=== PATIENT | female | born 1975 | race Caucasian/White ===

== ENCOUNTER 2023-07-11 12:24 | Day surgery (SDC) | payer MEDICARE, MEDICAID ==
[2023-07-05 15:19] LABS: BASOPHILS # (AUTO) 0.1 X10'3 (0-0.2); BASOPHILS % (AUTO) 1.1 % (0-1); BILIRUBIN,URINE NEGATIVE (Neg); CLARITY,URINE CLEAR (Clear); COLOR,URINE YELLOW (Yellow); EOSINOPHILS # (AUTO) 0.2 X10'3 (0-0.9); EOSINOPHILS % (AUTO) 2.7 % (0-6); GLUCOSE, URINE NEGATIVE (Neg); KETONES,URINE NEGATIVE (Neg); LEUKOCYTE ESTERASE ,URINE NEGATIVE (Neg); LYMPHOCYTES # (AUTO) 1.7 X10'3 (1.1-4.8); LYMPHOCYTES % (AUTO) 22.4 % (21-51); MEAN CORPUSCULAR HEMOGLOBIN 30.3 PG (27.0-31.0); MEAN CORPUSCULAR HGB CONC 33.7 g/dL (33.0-36.5); MEAN CORPUSCULAR VOLUME 89.9 FL (78-98); MEAN PLATELET VOLUME 8.5 FL (7.4-10.4); MONOCYTES # (AUTO) 0.4 X10'3 (0-0.9); MONOCYTES % (AUTO) 5.8 % (2-12); NEUTROPHILS # (AUTO) 5.1 X10'3 (1.8-7.7); NITRITES, URINE NEGATIVE (Neg); OCCULT BLOOD,URINE NEGATIVE (Neg); PRE OP HEMATOCRIT 37.9 % (35.0-45.0); PRE OP HEMOGLOBIN 12.8 g/dL (12.0-16.0); PRE OP PLATELET COUNT 325 X10'3 (140-440); PRE OP WHITE BLOOD COUNT 7.6 10'3 (4.8-10.8); PROTEIN,URINE NEGATIVE (Neg); RED BLOOD COUNT 4.22 X10'6 (4.20-5.60); RED CELL DISTRIBUTION WIDTH 16.5 % (11.5-14.5); UROBILINOGEN,URINE 0.2 E.U/dL (0.2-1.0)
[2023-07-05 15:24] LABS: UA COLLECTION TYPE CLN CATCH MIDSTREAM
[2023-07-05 15:34] LABS: PRE OP INR 1.1 INR; PRE OP PROTIME 11.4 SECONDS (9.0-12.0)
[2023-07-05 15:35] LABS: ALBUMIN 3.4 G/DL (3.4-5.0); ALBUMIN/GLOBULIN RATIO 0.6 (1.1-1.5); ALKALINE PHOSPHATASE 142 IU/L (46-116); BLOOD UREA NITROGEN 19 MG/DL (7-18); BUN/CREATININE RATIO 20.4 (10.0-20.0); CALCIUM 9.8 MG/DL (8.5-10.1); CHLORIDE 103 MMOL/L (99-107); CREATININE 0.93 MG/DL (0.40-0.90); PRE OP ALT 26 U/L (30-65); PRE OP ANION GAP 9 (8-16); PRE OP AST 23 U/L (10-37); PRE OP BILIRUB, TOTAL 0.3 MG/DL (0.0-1.0); PRE OP GLUCOSE 80 MG/DL (70-104); PRE OP POTASSIUM 3.8 MMOL/L (3.4-5.1); PRE OP SODIUM 137 MMOL/L (135-145); TOTAL CARBON DIOXIDE 25.3 MMOL/L (24-32); TOTAL PROTEIN 8.7 G/DL (6.4-8.2); eGFR 65 ML/MIN
[~2023-07-11] VITALS: Ht 172.7 cm; Wt 60.5 kg
[2023-07-11] VITALS (23 sets, daily range): BP systolic 99–134; BP diastolic 49–83; PULSE 65–96; RESP 10–25; TEMP 97.6–98.1; O2SAT 93–100
[2023-07-11] MEDS: potassium cl 20mEq in 1/2 NS 1,000 ML IV SCH (00:30)
[~2023-07-11 12:24] MED LIST: AMLO2.5T5 PO; IBUP-1986 PO; LOSA100T58 PO; METH25VI11 IM; PREG150C47 PO; TRAM50TA2 PO; TRAZ-251 PO
[2023-07-11] MEDS ORDERED: tobramycin 40mg/ml inj ONE (13:21)
[2023-07-11] MEDS ORDERED: vancomycin 1,000mg inj ONE (13:21)
[2023-07-11] MEDS ORDERED: tobramycin sulfate 1.2gm vial ONE (13:22)
[2023-07-11] MEDS: famotidine 20mg tablet PO ONE (14:01)
[2023-07-11] MEDS: ringers solution, lacted 1,000 ML IV SCH ×2 (14:01→18:06)
[2023-07-11] MEDS: cefazolin 2gm/D5W 100mL 100 ML IV ONE (14:02)
[2023-07-11] MEDS: tranexamic acid inj. 1,000 MG in normal saline IV soln 100ML IV ONE (14:02)
[2023-07-11] MEDS: midazolam 1 mg/ML 2ml injection IV ONE (14:25)
[2023-07-11] MEDS ORDERED: fentaNYL/PF 50MCG/1 ML 2ML syringe ONE ×2 (15:29→16:22)
[2023-07-11] MEDS ORDERED: midazolam 1 mg/ML 2ml injection ONE (15:29)
[2023-07-11] MEDS ORDERED: acetaminophen 1,000mg/100ml IV 100 ML IV ONE (15:30)
[2023-07-11] MEDS ORDERED: propofol inj 20 ML IV ONE (15:30)
[2023-07-11] MEDS ORDERED: diphenhydrAMINE 25mg capsule PO PRN (15:30)
[2023-07-11] MEDS ORDERED: acetaminophen 325mg tablet PO PRN (15:30)
[2023-07-11] MEDS ORDERED: magnesium hydroxide 30ml (MOM) UD suspension PO PRN (15:30)
[2023-07-11] MEDS ORDERED: ROPIVAcaine 0.5% (5mg/ml) 30ml vial ONE (15:30)
[2023-07-11] MEDS ORDERED: ondansetron/PF 4mg/2ml inj IV PRN ×2 (15:30→16:30)
[2023-07-11] MEDS ORDERED: LIDOcaine 2% (20mg/ml) 5ml vial ONE (15:30)
[2023-07-11] MEDS ORDERED: bisacodyl 10mg suppository rectal RC PRN (15:30)
[2023-07-11] MEDS ORDERED: naloxone 0.4 mg/ml inj IV PRN (15:30)
[2023-07-11] MEDS ORDERED: ondansetron/PF 4mg/2ml inj ONE (15:31)
[2023-07-11] MEDS ORDERED: sevoflurane 250ml liquid IH ONE (15:39)
[2023-07-11] MEDS: ceFAZolin/D5W- 1GM premix 50 ML IV SCH (16:00)
[2023-07-11] MEDS ORDERED: ePHEDrine 50MG/ML INJ. ONE (16:27)
[2023-07-11] MEDS ORDERED: morphine 4 MG/ML inj SYRINge IV PRN (16:30)
[2023-07-11] MEDS ORDERED: morphine 2 MG/ML inj. syringe IV PRN (16:30)
[2023-07-11] MEDS ORDERED: fentaNYL/PF 50MCG/1 ML 2ML syringe IV PRN ×2 (16:30)
[2023-07-11] MEDS ORDERED: enalaprilat dihydrate 2.5mg/2ml vial IV PRN (16:30)
[2023-07-11] MEDS ORDERED: hydrALAZINE 20mg/ml inj. IV PRN (16:30)
[2023-07-11] MEDS ORDERED: albumin (Human) 5% 250ml 250 ML IV ONE (16:46)
[2023-07-11] MEDS ORDERED: METHOTREXATE SODIUM IM SCH (19:05)
[2023-07-11] MEDS ORDERED: traMADol 50MG tablet PO PRN (19:05)
[2023-07-11] MEDS: oxyCODONE IR 5mg (immed. release) tablet PO PRN (21:32)
[2023-07-11] MEDS: pregabalin 75mg capsule PO SCH (21:32)
[2023-07-11] MEDS: traZODone 50mg tablet PO PRN (21:38)
[2023-07-12 02:00] VITALS: BP 112/61; PULSE 78; RESP 15; TEMP 98.5; O2SAT 96
[2023-07-12] MEDS: ibuprofen tablet 400 MG TABLET PO PRN (06:06)
[2023-07-12 06:24] VITALS: BP 121/77; PULSE 77; RESP 13; TEMP 98.6; O2SAT 98
[2023-07-12 06:51] LABS: BASOPHILS % (AUTO) 0.1 % (0-1); EOSINOPHILS % (AUTO) 0.1 % (0-6); HEMATOCRIT 31.3 % (35.0-45.0); HEMOGLOBIN 10.9 g/dl (12.0-16.0); LYMPHOCYTES # (AUTO) 0.7 X10'3 (1.1-4.8); LYMPHOCYTES % (AUTO) 9.6 % (21-51); MEAN CORPUSCULAR HEMOGLOBIN 31.4 PG (27.0-31.0); MEAN CORPUSCULAR HGB CONC 34.6 g/dL (33.0-36.5); MEAN CORPUSCULAR VOLUME 90.7 FL (78-98); MEAN PLATELET VOLUME 8.8 FL (7.4-10.4); MONOCYTES # (AUTO) 0.4 X10'3 (0-0.9); NEUTROPHILS # (AUTO) 6.3 X10'3 (1.8-7.7); NEUTROPHILS % (AUTO) 84.2 % (42-75); PLATELET COUNT 283 X10'3 (140-440); RED BLOOD COUNT 3.46 X10'6 (4.20-5.60); RED CELL DISTRIBUTION WIDTH 17.5 % (11.5-14.5); WHITE BLOOD COUNT 7.5 X10'3 (4.5-11.0)
[2023-07-12 06:59] LABS: ANION GAP 11 (8-16); CHLORIDE 107 MMOL/L (99-107); POTASSIUM 4.3 MMOL/L (3.5-5.1); SODIUM 139 MMOL/L (135-145); TOTAL CARBON DIOXIDE 21.3 MMOL/L (24-32)
[2023-07-12] MEDS: amLODIPine 2.5mg tablet PO SCH (08:59)
[2023-07-12] MEDS: losartan 50mg tablet PO SCH (08:59)
[2023-07-12 10:00] VITALS: BP 127/83; PULSE 71; RESP 14; TEMP 98.4; O2SAT 98
[2023-07-12] MEDS ORDERED: DOXYCYCLINE 100MG CAPSULE PO SCH (17:30)
== END 2023-07-12 12:30 | disposition home or self-care (01) ==
LOC: ORTHO 4S 12:24 → PAS 12:24
PROVIDERS: ATTEND Specialist
DX: T84.098A Other mechanical complication of other internal joint prosthesis, initial encounter (principal); G89.18 Other acute postprocedural pain; I10 Essential (primary) hypertension; F41.9 Anxiety disorder, unspecified; F32.A Depression, unspecified; I20.9 Angina pectoris, unspecified; M06.9 Rheumatoid arthritis, unspecified; Z87.891 Personal history of nicotine dependence; Z79.1 Long term (current) use of non-steroidal anti-inflammatories (NSAID); Z79.899 Other long term (current) drug therapy; Z96.643 Presence of artificial hip joint, bilateral; Z98.890 Other specified postprocedural states; Z88.1 Allergy status to other antibiotic agents; Y79.2 Prosthetic and other implants, materials and accessory orthopedic devices associated with adverse incidents; Y92.89 Other specified places as the place of occurrence of the external cause
CPT/HCPCS: 20680; 36415; 64415; 73030; 80051; 80053; 81003; 82948; 85025; 85610; 85730; 86885; 86900; 86901; 87070; 87075; 87077; 87081; 87186; 97110; 97161; 97535; C1713; J0131; J0330; J0690; J1100; J2250; J2371; J2405; J2704; J2795; J3010; J3260; J3370; J3480; J3490; J7030; J7120; P9045; Z7506; Z7508; Z7512; 76000; A4565; A4618; A6449; A6455; A7000; G0378; J2370